=== PATIENT | male | born 1950 | race Caucasian/White ===

== ENCOUNTER 2019-01-05 04:02 | Inpatient (IN) | payer BC ==
[~2019-01-05] VITALS: Ht 170.2 cm; Wt 69.9 kg
[2019-01-05] MEDS ORDERED: NITROGLYCERIN OINT 1GM/INCH UDPKT TD ONE (04:30)
[2019-01-05] MEDS ORDERED: FUROSEMIDE 40MG/4ML VIAL IV ONE (04:30)
[2019-01-05] MEDS ORDERED: ASPIRIN 81MG TABLET PO ONE (04:30)
[2019-01-05 05:34] LABS: BG BASE EXCESS -11.9 mmol/L (-2.0-2.0); BG CARBOXYHEMOGLOBIN 0.3 % (0.5-1.5); BG DEOXYHEMOGLOBIN 14.9 % (0.0-5.0); BG FRACTION INSPIRED OXYGEN 21; BG HCO3 ACT 13.2 mmol/L (22.0-26.0); BG METHEMOGLOBIN 0.1 % (0.0-1.5); BG OXYHEMOGLOBIN 84.7 % (94.0-97.0); BG PCO2 27.7 mmHg (35.0-45.0); BG PH 7.296 (7.350-7.450); BG PO2 54.2 mmHg (75.0-100.0); BG SAMPLE SITE RIGHT RADIAL; BG TOTAL HEMOGLOBIN 10.3 g/dL (12.0-18.0); BG VENT MODE ROOM AIR
[2019-01-05] MEDS ORDERED: LEVOFLOXACIN 750MG PREMIX 150 ML IV ONE (06:15)
[2019-01-05 06:40] LABS: HEMATOCRIT. 25.1 % (42.0-52.0); HEMOGLOBIN. 8.1 g/dL (14.0-18.0); MEAN CORPUSCULAR HEMOGLOBIN 28.1 pg (28.0-32.0); MEAN CORPUSCULAR VOLUME 87.3 fL (80.0-94.0); MEAN PLATELET VOLUME 8.3 fl (7.4-10.4); PLATELET 252 x1000/uL (130-400); RED BLOOD CELL COUNT 2.88 mill/uL (4.7-6.1); RED CELL DISTRIBUTION WIDTH 15.3 % (11.6-14.6)
[2019-01-05 06:42] LABS: CHLORIDE 114 mEq/L (98-107)
[2019-01-05 06:44] LABS: INR 1.1; PARTIAL THROMBOPLASTIN TIME 35.5 sec (23.4-31.0); PROTHROMBIN TIME 10.8 sec (9.1-11.1)
[2019-01-05 06:46] LABS: ETHANOL BLOOD < 10 mg/dL
[2019-01-05 08:17] LABS: PLATELET ESTIMATE NORMAL
[2019-01-05 11:45] VITALS: BP 144/66
[2019-01-05] MEDS: OMEPRAZOLE 20MG CAPSULE EXTENDED RELEASE PO SCH ×2 (12:32→21:58)
[2019-01-05] MEDS: HEPARIN 5000 UNITS/ML VIAL SUBCUT SCH ×2 (12:32→22:00)
[2019-01-05] MEDS: FUROSEMIDE 40MG/4ML VIAL IVP SCH ×2 (12:34→16:55)
[2019-01-05 13:00] VITALS: BP 144/66
[2019-01-05] MEDS ORDERED: clonidine (15:28)
[2019-01-05] MEDS ORDERED: amlodipine PO (15:28)
[2019-01-05] MEDS ORDERED: metoprolol PO (15:28)
[2019-01-05] MEDS ORDERED: januvia (15:28)
[2019-01-05] MEDS ORDERED: procrit (15:28)
[2019-01-05] MEDS ORDERED: atorvastatin IV (15:28)
[2019-01-05] MEDS ORDERED: FURO-151 PO (15:28)
[2019-01-05 15:33] LABS: PHOSPHORUS 5.5 mg/dL (2.5-4.9)
[2019-01-05 16:00] VITALS: BP 124/60
[2019-01-05] MEDS: NITROGLYCERIN OINT 1GM/INCH UDPKT TD SCH ×2 (16:08→21:59)
[2019-01-05 20:00] VITALS: BP 138/64
[2019-01-06] VITALS (13 sets, daily range): BP systolic 142–189; BP diastolic 65–95
[2019-01-06 06:53] LABS: CHLORIDE 116 mEq/L (98-107)
[2019-01-06 07:14] LABS: LDL CHOLESTEROL 99 mg/dL (5-100)
[2019-01-06 07:17] LABS: HDL CHOLESTEROL 34 mg/dL (40-59)
[2019-01-06] MEDS: OMEPRAZOLE 20MG CAPSULE EXTENDED RELEASE PO SCH ×2 (07:21→20:24)
[2019-01-06] MEDS: NITROGLYCERIN OINT 1GM/INCH UDPKT TD SCH (07:21)
[2019-01-06 08:05] LABS: BASOPHILS % 1.1 % (0.0-2.0); HEMOGLOBIN. 7.1 g/dL (14.0-18.0); LYMPHOCYTES % 22.4 % (20.0-50.0); MEAN PLATELET VOLUME 7.9 fl (7.4-10.4); MONOCYTES % 10.8 % (2.0-8.0); NEUTROPHILS % 62.7 % (40.0-76.0); PLATELET 236 x1000/uL (130-400); RED BLOOD CELL COUNT 2.53 mill/uL (4.7-6.1); RED CELL DISTRIBUTION WIDTH 15.3 % (11.6-14.6)
[2019-01-06] MEDS: FUROSEMIDE 40MG/4ML VIAL IVP SCH ×2 (08:40→16:18)
[2019-01-06] MEDS: HEPARIN 5000 UNITS/ML VIAL SUBCUT SCH ×2 (09:00→20:22)
[2019-01-06] MEDS ORDERED: FERROUS SULFATE 300MG/5ML UDC PO SCH (12:00)
[2019-01-06] MEDS ORDERED: FOLIC ACID/VITAMIN B COMP W-C TABLET PO SCH (12:30)
[2019-01-06] MEDS: CALCIUM ACETATE 667MG CAPSULE PO SCH ×3 (12:37→17:31)
[2019-01-06] MEDS ORDERED: SODIUM POLYSTYRENE SULFONATE 15 G/60 ML BOT PO SCH (14:00)
[2019-01-06] MEDS: SODIUM BICARBONATE 650 MG TABLET PO SCH ×2 (15:04→17:26)
[2019-01-06] MEDS: AMLODIPINE 5MG TABLET PO SCH ×2 (16:03→22:47)
[2019-01-06] MEDS: METOPROLOL TARTRATE 25MG TABLET PO SCH ×2 (16:03→22:47)
[2019-01-06] MEDS: CLONIDINE 0.1MG TABLET PO PRN ×2 (18:10→20:18)
[2019-01-06] MEDS ORDERED: EPOETIN ALFA 10000UNITS/ML VIAL SUBCUT NR (21:00)
[2019-01-06] MEDS ORDERED: FURO-151 IVP (21:28)
[2019-01-06] MEDS ORDERED: EPOE10003 SQ (21:29)
[2019-01-06] MEDS ORDERED: FERR325T6 PO (21:30)
[2019-01-06] MEDS ORDERED: NEPVIT PO (21:31)
[2019-01-06] MEDS ORDERED: CALC667T5 PO (21:32)
[2019-01-06] MEDS ORDERED: SODI650T PO (21:32)
[2019-01-06] MEDS ORDERED: HJ10 SUBCUT (21:34)
[2019-01-06] MEDS ORDERED: OMEP20TA2 PO (21:35)
[2019-01-07] MEDS ORDERED: FERROUS SULFATE 300MG/5ML UDC PO SCH (09:00)
== END 2019-01-06 23:10 | disposition short-term general hospital (02) | DRG 291 ==
LOC: ER 04:02 → 6WST 06:20 → EDBEDREQTM 06:38 → EDBEDREQ 06:38 → ENRESERV 10:35
PROVIDERS: ADMIT Internal Medicine Critical Care Medicine; ATTEND Internal Medicine Critical Care Medicine
PROC: 30233N1 Transfusion of Nonautologous Red Blood Cells into Peripheral Vein, Percutaneous Approach (ICD-10-PCS; principal; 2019-01-06)
DX: I13.2 Hypertensive heart and chronic kidney disease with heart failure and with stage 5 chronic kidney disease, or end stage renal disease (principal); N18.6 End stage renal disease; I50.33 Acute on chronic diastolic (congestive) heart failure; N17.9 Acute kidney failure, unspecified; I42.9 Cardiomyopathy, unspecified; D63.1 Anemia in chronic kidney disease; E11.22 Type 2 diabetes mellitus with diabetic chronic kidney disease; E11.319 Type 2 diabetes mellitus with unspecified diabetic retinopathy without macular edema; E78.00 Pure hypercholesterolemia, unspecified; E78.5 Hyperlipidemia, unspecified; E87.5 Hyperkalemia; Z83.3 Family history of diabetes mellitus; Z87.891 Personal history of nicotine dependence; Z91.19 Patient's noncompliance with other medical treatment and regimen; Z79.84 Long term (current) use of oral hypoglycemic drugs
CPT/HCPCS: 36415; 36600; 71045; 76770; 80048; 80061; 80320; 82375; 82805; 83036; 83540; 83550; 83605; 83735; 83880; 84100; 84153; 84484; 86850; 86900; 86920; 93005; 93306; 93970; 99285; C1893; J0885; J1644; J1940; J1956; J7050; P9016; G0103; G0480

== ENCOUNTER 2020-12-07 08:56 | Inpatient (IN) | payer BC, MEDICAID, OTHER ==
[~2020-12-07] VITALS: Ht 162.6 cm; Wt 63.5 kg
[~2020-12-07 08:56] MED LIST: CALC667T6 PO; EPOE10003 SQ; FERR325T6 PO; FURO-151 IVP; HJ10 SUBCUT; NEPVIT PO; OMEP20TA2 PO; SODI650T PO; amlodipine PO; atorvastatin IV; clonidine; metoprolol PO
[2020-12-07] MEDS ORDERED: NITROGLYCERIN 50MG PREMIX 250 ML IV ONE ×2 (09:15→22:15)
[2020-12-07 10:04] LABS: BASOPHILS % 0.5 % (0.0-2.0); EOSINOPHILS % 0.8 % (0.0-5.0); HEMATOCRIT. 43.3 % (42.0-52.0); HEMOGLOBIN. 13.6 g/dL (14.0-18.0); LYMPHOCYTES % 28.3 % (20.0-50.0); MEAN CORPUSCULAR HEMOGLOBIN 28.9 pg (28.0-32.0); MEAN CORPUSCULAR VOLUME 91.8 fL (80.0-94.0); MEAN PLATELET VOLUME 8.8 fl (7.4-10.4); MONOCYTES % 7.8 % (2.0-8.0); NEUTROPHILS % 62.6 % (40.0-76.0); PLATELET 192 x1000/uL (130-400); RED BLOOD CELL COUNT 4.71 mill/uL (4.7-6.1)
[2020-12-07 10:06] LABS: CHLORIDE 105 mEq/L (98-107)
[2020-12-07 10:08] LABS: BG BASE EXCESS -6.1 mmol/L (-2.0-2.0); BG CARBOXYHEMOGLOBIN 0.6 % (0.5-1.5); BG DEOXYHEMOGLOBIN 1.8 % (0.0-5.0); BG FRACTION INSPIRED OXYGEN 100; BG HCO3 ACT 20.9 mmol/L (22.0-26.0); BG METHEMOGLOBIN 0.3 % (0.0-1.5); BG OXYGEN SATURATION 98.2 % (92.0-98.5); BG OXYHEMOGLOBIN 97.3 % (94.0-97.0); BG PH 7.266 (7.350-7.450); BG PO2 227.4 mmHg (75.0-100.0); BG SAMPLE SITE RIGHT BRACHIAL; BG TOTAL HEMOGLOBIN 13.4 g/dL (12.0-18.0); BG VENT MODE MASK - CPAP
[2020-12-07 10:10] LABS: INR 1.1; PROTHROMBIN TIME 11.4 sec (9.6-11.0)
[2020-12-07 12:43] LABS: PHOSPHORUS 5.1 mg/dL (2.5-4.9)
[2020-12-07] MEDS ORDERED: ACETAMINOPHEN 325MG TABLET PO PRN ×2 (18:45)
[2020-12-07] MEDS ORDERED: DIPHENHYDRAMINE 50MG/ML VIAL IV PRN (18:45)
[2020-12-07] MEDS ORDERED: ONDANSETRON HCL 4MG/2ML INJ IV PRN (18:45)
[2020-12-07] MEDS ORDERED: ZOLPIDEM TARTRATE 5MG TABLET PO PRN (18:45)
[2020-12-07] MEDS ORDERED: MAGNESIUM/ALUMINUM HYDROXIDE/SIMETHICONE 30ML UDC PO PRN (18:45)
[2020-12-07] MEDS ORDERED: CLONIDINE 0.1MG TABLET PO PRN (18:45)
[2020-12-07] MEDS ORDERED: DEXTROSE 50% WATER 50ML SYRINGE IV PRN (19:15)
[2020-12-07] MEDS: CLONIDINE 0.2MG TABLET PO SCH (19:57)
[2020-12-07] MEDS: INSULIN LISPRO 100 UNITS/ML SUBCUT SCH (20:47)
[2020-12-07] MEDS: BLOOD SUGAR DIAGNOSTIC STRIP TEST SCH (20:48)
[2020-12-07] MEDS: METOPROLOL TARTRATE 25MG TABLET PO SCH (21:06)
[2020-12-07] MEDS: AMLODIPINE 5MG TABLET PO SCH (21:06)
[2020-12-07] MEDS: SODIUM CHLORIDE 0.9% INJ 3ML FLUSH IVF SCH (22:07)
[2020-12-08] VITALS (25 sets, daily range): BP systolic 119–199; BP diastolic 44–112
[2020-12-08 05:17] LABS: BASOPHILS % 0.5 % (0.0-2.0); EOSINOPHILS % 2.1 % (0.0-5.0); HEMATOCRIT. 32.2 % (42.0-52.0); HEMOGLOBIN. 10.5 g/dL (14.0-18.0); LYMPHOCYTES % 12.2 % (20.0-50.0); MEAN CORPUSCULAR HEMOGLOBIN 29.3 pg (28.0-32.0); MEAN CORPUSCULAR VOLUME 90.1 fL (80.0-94.0); MONOCYTES % 9.7 % (2.0-8.0); NEUTROPHILS % 75.5 % (40.0-76.0); RED BLOOD CELL COUNT 3.57 mill/uL (4.7-6.1); RED CELL DISTRIBUTION WIDTH 14.5 % (11.6-14.6)
[2020-12-08 05:18] LABS: CHLORIDE 103 mEq/L (98-107)
[2020-12-08] MEDS: SODIUM CHLORIDE 0.9% INJ 3ML FLUSH IVF SCH ×3 (06:05→21:53)
[2020-12-08] MEDS: INSULIN LISPRO 100 UNITS/ML SUBCUT SCH ×5 (06:05→21:34)
[2020-12-08] MEDS: BLOOD SUGAR DIAGNOSTIC STRIP TEST SCH ×4 (06:05→21:52)
[2020-12-08] MEDS: CLONIDINE 0.2MG TABLET PO SCH ×2 (07:15→20:08)
[2020-12-08] MEDS: FOLIC ACID/VITAMIN B COMP W-C TABLET PO SCH (10:36)
[2020-12-08] MEDS: AMLODIPINE 5MG TABLET PO SCH ×2 (10:37→21:32)
[2020-12-08] MEDS: METOPROLOL TARTRATE 25MG TABLET PO SCH ×2 (10:38→21:32)
[2020-12-08 16:35] LABS: MEAN PLATELET VOLUME 7.7 fl (7.4-10.4); PLATELET 121 x1000/uL (130-400)
[2020-12-09] VITALS (54 sets, daily range): BP systolic 101–184; BP diastolic 44–106
[2020-12-09 05:56] LABS: CHLORIDE 102 mEq/L (98-107)
[2020-12-09] MEDS: SODIUM CHLORIDE 0.9% INJ 3ML FLUSH IVF SCH ×3 (06:15→19:49)
[2020-12-09 06:23] LABS: BASOPHILS % 0.7 % (0.0-2.0); EOSINOPHILS % 3.8 % (0.0-5.0); HEMATOCRIT. 32.5 % (42.0-52.0); HEMOGLOBIN. 10.5 g/dL (14.0-18.0); LYMPHOCYTES % 17.6 % (20.0-50.0); MEAN CORPUSCULAR HEMOGLOBIN 29.1 pg (28.0-32.0); MEAN PLATELET VOLUME 7.8 fl (7.4-10.4); MONOCYTES % 11.6 % (2.0-8.0); NEUTROPHILS % 66.3 % (40.0-76.0); PLATELET 94 x1000/uL (130-400); RED BLOOD CELL COUNT 3.61 mill/uL (4.7-6.1); RED CELL DISTRIBUTION WIDTH 14.3 % (11.6-14.6)
[2020-12-09] MEDS: BLOOD SUGAR DIAGNOSTIC STRIP TEST SCH ×4 (07:30→21:01)
[2020-12-09] MEDS: INSULIN LISPRO 100 UNITS/ML SUBCUT SCH ×4 (08:00→21:00)
[2020-12-09] MEDS: CLONIDINE 0.2MG TABLET PO SCH ×2 (09:03→21:21)
[2020-12-09] MEDS: METOPROLOL TARTRATE 25MG TABLET PO SCH ×2 (09:03→21:21)
[2020-12-09] MEDS: FOLIC ACID/VITAMIN B COMP W-C TABLET PO SCH (09:03)
[2020-12-09] MEDS: AMLODIPINE 5MG TABLET PO SCH ×2 (09:04→21:21)
[2020-12-10] VITALS (54 sets, daily range): BP systolic 145–204; BP diastolic 61–145
[2020-12-10 05:30] LABS: PHOSPHORUS 5.1 mg/dL (2.5-4.9)
[2020-12-10 06:23] LABS: BASOPHILS % 0.8 % (0.0-2.0); EOSINOPHILS % 5.9 % (0.0-5.0); HEMATOCRIT. 32.2 % (42.0-52.0); HEMOGLOBIN. 10.5 g/dL (14.0-18.0); LYMPHOCYTES % 16.9 % (20.0-50.0); MEAN CORPUSCULAR HEMOGLOBIN 29.4 pg (28.0-32.0); MEAN CORPUSCULAR VOLUME 89.7 fL (80.0-94.0); MEAN PLATELET VOLUME 7.9 fl (7.4-10.4); MONOCYTES % 9.9 % (2.0-8.0); NEUTROPHILS % 66.5 % (40.0-76.0); PLATELET 104 x1000/uL (130-400); RED BLOOD CELL COUNT 3.59 mill/uL (4.7-6.1)
[2020-12-10] MEDS: BLOOD SUGAR DIAGNOSTIC STRIP TEST SCH ×2 (07:30→11:21)
[2020-12-10] MEDS: INSULIN LISPRO 100 UNITS/ML SUBCUT SCH ×2 (08:00→13:44)
[2020-12-10] MEDS: FOLIC ACID/VITAMIN B COMP W-C TABLET PO SCH (08:45)
[2020-12-10] MEDS: AMLODIPINE 5MG TABLET PO SCH (08:45)
[2020-12-10] MEDS: METOPROLOL TARTRATE 25MG TABLET PO SCH (08:45)
[2020-12-10] MEDS: CLONIDINE 0.2MG TABLET PO SCH (08:46)
[2020-12-10] MEDS: SODIUM CHLORIDE 0.9% INJ 3ML FLUSH IVF SCH (14:06)
[2020-12-10] MEDS ORDERED: CLONIDINE 0.3MG TABLET PO SCH (20:00)
== END 2020-12-10 16:00 | disposition home or self-care (01) | DRG 194 ==
LOC: ER 09:04 → MICUSO 11:28 → 5EST 12-08 07:48
PROVIDERS: ADMIT Internal Medicine; ATTEND Internal Medicine
PROC: 5A09457 Assistance with Respiratory Ventilation, 24-96 Consecutive Hours, Continuous Positive Airway Pressure (ICD-10-PCS; principal; 2020-12-07)
PROC: 5A1D70Z Performance of Urinary Filtration, Intermittent, Less than 6 Hours Per Day (ICD-10-PCS; 2020-12-08)
PROC: 5A1D70Z Performance of Urinary Filtration, Intermittent, Less than 6 Hours Per Day (ICD-10-PCS; 2020-12-09)
DX: I13.2 Hypertensive heart and chronic kidney disease with heart failure and with stage 5 chronic kidney disease, or end stage renal disease (principal); N18.6 End stage renal disease; G93.41 Metabolic encephalopathy; E11.22 Type 2 diabetes mellitus with diabetic chronic kidney disease; D63.1 Anemia in chronic kidney disease; Z20.822 Contact with and (suspected) exposure to COVID-19; I50.33 Acute on chronic diastolic (congestive) heart failure; D63.8 Anemia in other chronic diseases classified elsewhere; Z87.441 Personal history of nephrotic syndrome; Z79.899 Other long term (current) drug therapy; Z83.3 Family history of diabetes mellitus; Z99.2 Dependence on renal dialysis; J96.01 Acute respiratory failure with hypoxia
CPT/HCPCS: 36415; 36600; 71045; 80048; 80053; 80069; 82375; 82805; 82962; 83036; 83605; 83880; 84100; 84484; 85025; 87426; 93005; 93970; 94660; 99291; J1815; J3490